=== PATIENT | male | born 1980 | race Caucasian/White ===

== ENCOUNTER 2018-12-09 00:08 | Emergency (ER) | payer OTHER ==
[~2018-12-09] VITALS: Ht 172.7 cm; Wt 93.0 kg
[~2018-12-09 00:08] MED LIST: ACETAMINOPHEN-1 EAC1 PO; CLEOCIN HCL300 MG PO; HYDROCODON-ACE1 EAC7 PO; HYDROCODONE-AP1 EAC6 PO; IBUPROFEN 800800 M1 PO; LIDOCAINE VISC100 M1 SWISH&SPIT; PENICILLIN V P250 MG PO; PENICILLIN V P500 MG PO; TEGRETOL XR100 MG PO; TEGRETOL100 MG/5 M PO
[2018-12-09] MEDS ORDERED: LEXAPRO 10 MG T10 M1 PO (00:50)
[2018-12-09] MEDS ORDERED: ULTRAM 50MG TAB50 MG PO (00:51)
[2018-12-09] MEDS ORDERED: NEURONTIN 400400 M1 PO (00:51)
[2018-12-09] MEDS ORDERED: LIDODERM1 EACH TRANSDERM (00:51)
[2018-12-09] MEDS ORDERED: XANAX 0.25 MG0.25 MG PO (00:51)
[2018-12-09] MEDS ORDERED: DEPAKOTE125 MG PO (00:51)
[2018-12-09 02:13] LABS: URINE BILIRUBIN NEGATIVE (Negative); URINE BLOOD NEGATIVE (Negative); URINE CLARITY CLEAR; URINE COLOR YELLOW; URINE GLUCOSE-RANDOM NEGATIVE (Negative); URINE KETONES TRACE (Negative); URINE LEUKOCYTES-REFLEX NEGATIVE (Negative); URINE NITRITE-REFLEX NEGATIVE (Negative); URINE PROTEIN NEGATIVE (Negative); URINE SPECIFIC GRAVITY >= 1.030 (1.005-1.030); URINE UROBILINOGEN 0.2 E.U./dl (0.2-1.0)
[2018-12-09 02:22] LABS: AMP/METHAMP POSITIVE (Negative); BARBITURATES Negative (Negative); BENZODIAZEPINES POSITIVE (Negative); COCAINE Negative (Negative); METHADONE Negative (Negative); OPIATES Negative (Negative); PCP Negative (Negative); THC Negative (Negative)
[2018-12-09 03:08] LABS: ABSOLUTE EOSINOPHILS 0.2 thou/uL (0.0-0.7); ABSOLUTE LYMPHOCYTES 1.6 thou/uL (0.8-5.3); ABSOLUTE MONOCYTES 0.5 thou/uL (0.0-1.2); ABSOLUTE NEUTROPHILS 4.1 thou/uL (1.6-8.1); BASOPHILS 0.6 %; EOSINOPHILS 2.6 %; HEMATOCRIT 39.5 % (42.0-52.0); HEMOGLOBIN 13.4 gm/dL (14.0-18.0); LYMPHOCYTES 25.4 %; MCH 29.8 pg (26.0-34.0); MCV 87.8 fL (80.0-100.0); MONOCYTES 7.5 %; MPV 9.3 fl. (7.2-11.1); NUCLEATED RBCS 0 /100WBC; PLATELET COUNT* 199 thou/uL (150-400); POLYS 63.9 %; RBC 4.49 mil/uL (4.50-6.00); WBC 6.5 thou/uL (4.0-11.0)
[2018-12-09 03:13] LABS: ANION GAP 5 mmol/L (7-16); BUN 23 mg/dL (7-18); CALCIUM 8.7 mg/dL (8.5-10.1); CHLORIDE 103 mmol/L (98-107); CO2 28 mmol/L (21-32); CREATININE 1.3 mg/dL (0.6-1.3); GLUCOSE 85 mg/dL (70-99); SODIUM 136 mmol/L (136-145)
[2018-12-09 03:19] LABS: ALBUMIN 3.5 g/dL (3.4-5.0); ALKALINE PHOSPHATASE 70 U/L (46-116); SGOT 19 U/L (15-37); SGPT 24 U/L (30-65); TOTAL BILIRUBIN 0.4 mg/dL (<0.1-1.0); TOTAL PROTEIN 7.1 g/dL (6.4-8.2); TROPONIN-I LEVEL <0.06 ng/mL (<0.06)
[2018-12-09 03:30] LABS: ALCOHOL < 10 mg/dL (<10); SALICYLATE < 2.8 mg/dL (2.8-20.0)
[2018-12-09 03:44] LABS: ACETAMINOPHEN < 2 ug/mL (10-30)
--- NOTE | 2018-12-09 15:32 | EKG ---
[place] [address] ELECTROCARDIOGRAM REPORT Name: PRASANTH SUH Room: [facility]#: [id number] Admission: 12/09/18 Attend Phys: Discharge: Date of : 78 Report #: [id number] THIS REPORT FOR: //name// [facility] Test Date: 2018-12-09 Test Time: 01:38:55 Pat Name: PRASANTH SUH Department: Room: Gender: Shipping Specialist: Miguel MESSINA : 1980 Requested By: Tyrel Watts Order Number: [id number] MD: Cy Gonzalez Measurements Intervals [place] Rate: 102 P: 68 [place]: 171 QRS: 63 QRSD: 80 T: 39 QT: 328 QTc: 428 Interpretive Statements Sinus tachycardia ST elev, probable normal early repol pattern No previous ECG available for comparison Electronically Signed On 12-09-2018 15:32:25 INSURANCE ADJUSTER by Cy Gonzalez [email or web address] <ELECTRONICALLY SIGNED> By: Cy Gonzalez MD, [facility] 12/09/18 1532 [id number] Cy Gonzalez MD, FACC /EPI
[2018-12-09 16:57] VITALS: BP 99/59
== END 2018-12-09 17:01 | disposition home or self-care (01) ==
LOC: M.ERS 00:08
PROVIDERS: Emergency Medicine
DX: R45.851 Suicidal ideations (principal); F60.3 Borderline personality disorder; F32.9 Major depressive disorder, single episode, unspecified; F41.9 Anxiety disorder, unspecified

== ENCOUNTER 2019-08-05 21:46 | Emergency (ER) | payer OTHER, MEDICAID ==
[~2019-08-05] VITALS: Ht 175.3 cm; Wt 96.2 kg
[~2019-08-05 21:46] MED LIST changes: +DEPAKOTE125 MG PO; +LEXAPRO 10 MG T10 M1 PO; +LIDODERM1 EACH TRANSDERM; +NEURONTIN 400400 M1 PO; +ULTRAM 50MG TAB50 MG PO; +XANAX 0.25 MG0.25 MG PO
[2019-08-05 22:27] LABS: URINE BILIRUBIN NEGATIVE (Negative); URINE BLOOD NEGATIVE (Negative); URINE CLARITY CLEAR; URINE COLOR YELLOW; URINE GLUCOSE-RANDOM NEGATIVE (Negative); URINE KETONES NEGATIVE (Negative); URINE LEUKOCYTES NEGATIVE (Negative); URINE NITRITE NEGATIVE (Negative); URINE PROTEIN NEGATIVE (Negative); URINE UROBILINOGEN 0.2 E.U./dl (0.2-1.0)
[2019-08-05 22:30] LABS: HEMATOCRIT 41.4 % (42.0-52.0); HEMOGLOBIN 14.3 gm/dL (14.0-18.0); MCH 31.4 pg (26.0-34.0); MCHC 34.6 g/dL (28.0-37.0); MCV 90.8 fL (80.0-100.0); MPV 9.5 fl. (7.2-11.1); NUCLEATED RBCS 0 /100WBC; PLATELET COUNT* 185 thou/uL (150-400); RBC 4.56 mil/uL (4.50-6.00); RDW-CV 13.2 % (10.5-14.5); WBC 8.3 thou/uL (4.0-11.0)
[2019-08-05 22:36] LABS: AMP/METHAMP Negative (Negative); BARBITURATES Negative (Negative); BENZODIAZEPINES POSITIVE (Negative); COCAINE Negative (Negative); METHADONE Negative (Negative); OPIATES Negative (Negative); PCP Negative (Negative); THC Negative (Negative)
[2019-08-05 22:39] LABS: CALCIUM 9.3 mg/dL (8.5-10.1); POTASSIUM 4.5 mmol/L (3.5-5.1)
[2019-08-05 22:44] LABS: ACETAMINOPHEN < 2 ug/mL (10-30); ALBUMIN 3.6 g/dL (3.4-5.0); ALCOHOL < 10 mg/dL (<10); SALICYLATE < 2.8 mg/dL (2.8-20.0); TOTAL BILIRUBIN 0.1 mg/dL (<0.1-1.0); TOTAL PROTEIN 7.5 g/dL (6.4-8.2)
[2019-08-05 22:54] LABS: VALPROIC ACID (DEPAKENE) 16.5 mcg/mL (50-100)
[2019-08-05 23:18] LABS: ABSOLUTE EOSINOPHILS 1.3 thou/uL (0.0-0.7); ABSOLUTE LYMPHOCYTES 2.7 thou/uL (0.8-5.3); ABSOLUTE MONOCYTES 0.4 thou/uL (0.0-1.2); ABSOLUTE NEUTROPHILS 3.8 thou/uL (1.6-8.1); PLATELET ESTIMATE ADEQUATE
[2019-08-06 03:49] VITALS: BP 111/63
== END 2019-08-06 03:50 | disposition home or self-care (01) ==
LOC: M.ERS 21:46
PROVIDERS: Emergency Medicine
DX: F41.9 Anxiety disorder, unspecified (principal); F32.9 Major depressive disorder, single episode, unspecified

== ENCOUNTER 2019-12-24 20:22 | Emergency (ER) | payer OTHER, MEDICAID ==
[~2019-12-24] VITALS: Ht 175.3 cm; Wt 103.0 kg
[2019-12-24 21:04] LABS: CALCIUM 8.2 mg/dL (8.5-10.1); CREATININE 1.3 mg/dL (0.6-1.3); HEMATOCRIT 43.8 % (42.0-52.0); HEMOGLOBIN 15.1 gm/dL (14.0-18.0); MCH 30.9 pg (26.0-34.0); MCHC 34.5 g/dL (28.0-37.0); MCV 89.7 fL (80.0-100.0); MPV 9.5 fl. (7.2-11.1); NUCLEATED RBCS 0 /100WBC; PLATELET COUNT* 226 thou/uL (150-400); POTASSIUM 3.6 mmol/L (3.5-5.1); RBC 4.89 mil/uL (4.50-6.00); RDW-CV 13.1 % (10.5-14.5); WBC 13.3 thou/uL (4.0-11.0)
[2019-12-24 21:09] LABS: ALBUMIN 3.9 g/dL (3.4-5.0); TOTAL BILIRUBIN 0.7 mg/dL (<0.1-1.0); TOTAL PROTEIN 8.2 g/dL (6.4-8.2)
[2019-12-24 22:33] LABS: ABSOLUTE EOSINOPHILS 0.4 thou/uL (0.0-0.7); ABSOLUTE LYMPHOCYTES 5.6 thou/uL (0.8-5.3); ABSOLUTE MONOCYTES 0.7 thou/uL (0.0-1.2); ABSOLUTE NEUTROPHILS 6.7 thou/uL (1.6-8.1); ATYPICAL LYMPHS 2 %; PLATELET ESTIMATE ADEQUATE; TOXIC GRANULATION 1+
[2019-12-24 22:34] LABS: HYPOCHROMASIA 1+
[2019-12-25 03:49] VITALS: BP 130/41
== END 2019-12-25 09:56 | disposition home or self-care (01) ==
LOC: M.ERS 20:22
PROVIDERS: Emergency Medicine
DX: S60.512A Abrasion of left hand, initial encounter (principal); S80.212A Abrasion, left knee, initial encounter; S80.211A Abrasion, right knee, initial encounter; F98.9 Unspecified behavioral and emotional disorders with onset usually occurring in childhood and adolescence; F32.9 Major depressive disorder, single episode, unspecified; F41.9 Anxiety disorder, unspecified; R45.850 Homicidal ideations; R41.82 Altered mental status, unspecified; X58.XXXA Exposure to other specified factors, initial encounter; Y93.89 Activity, other specified; Y92.89 Other specified places as the place of occurrence of the external cause; Y99.8 Other external cause status

== ENCOUNTER 2020-02-14 20:29 | Emergency (ER) | payer OTHER, MEDICAID ==
[~2020-02-14] VITALS: Ht 172.7 cm; Wt 90.7 kg
[2020-02-14 21:21] LABS: ABSOLUTE BASOPHILS 0.1 thou/uL (0.0-0.2); ABSOLUTE EOSINOPHILS 0.2 thou/uL (0.0-0.7); ABSOLUTE LYMPHOCYTES 2.5 thou/uL (0.8-5.3); ABSOLUTE MONOCYTES 0.7 thou/uL (0.0-1.2); ABSOLUTE NEUTROPHILS 3.2 thou/uL (1.6-8.1); HEMATOCRIT 42.4 % (42.0-52.0); HEMOGLOBIN 14.8 gm/dL (14.0-18.0); LYMPHOCYTES 37.8 %; MCH 30.9 pg (26.0-34.0); MCHC 34.8 g/dL (28.0-37.0); MCV 88.9 fL (80.0-100.0); MONOCYTES 10.5 %; MPV 8.7 fl. (7.2-11.1); NUCLEATED RBCS 0 /100WBC; PLATELET COUNT* 215 thou/uL (150-400); POLYS 47.7 %; RBC 4.77 mil/uL (4.50-6.00); RDW-CV 13.1 % (10.5-14.5); WBC 6.7 thou/uL (4.0-11.0)
[2020-02-14 21:29] LABS: CALCIUM 8.1 mg/dL (8.5-10.1); CREATININE 1.1 mg/dL (0.6-1.3); POTASSIUM 3.7 mmol/L (3.5-5.1)
[2020-02-14 21:29] LABS: URINE BILIRUBIN NEGATIVE (Negative); URINE BLOOD NEGATIVE (Negative); URINE CLARITY CLEAR; URINE COLOR YELLOW; URINE GLUCOSE-RANDOM NEGATIVE (Negative); URINE KETONES NEGATIVE (Negative); URINE LEUKOCYTES-REFLEX NEGATIVE (Negative); URINE NITRITE-REFLEX NEGATIVE (Negative); URINE PROTEIN NEGATIVE (Negative); URINE SPECIFIC GRAVITY 1.015 (1.005-1.030); URINE UROBILINOGEN 0.2 E.U./dl (0.2-1.0)
[2020-02-14 21:34] LABS: ALBUMIN 3.8 g/dL (3.4-5.0); TOTAL PROTEIN 8.1 g/dL (6.4-8.2)
[2020-02-14 21:37] LABS: AMP/METHAMP Negative (Negative); BARBITURATES Negative (Negative); BENZODIAZEPINES Negative (Negative); COCAINE Negative (Negative); METHADONE Negative (Negative); OPIATES Negative (Negative); PCP Negative (Negative); THC Negative (Negative)
[2020-02-14 21:42] LABS: ALCOHOL 157 mg/dL (<10); SALICYLATE < 2.8 mg/dL (2.8-20.0)
[2020-02-14 21:43] LABS: ACETAMINOPHEN < 2 ug/mL (10-30)
[2020-02-15 04:58] VITALS: BP 142/74
== END 2020-02-15 04:58 | disposition home or self-care (01) ==
LOC: M.ERS 20:29
PROVIDERS: Family Medicine
DX: S61.411A Laceration without foreign body of right hand, initial encounter (principal); S00.83XA Contusion of other part of head, initial encounter; F91.1 Conduct disorder, childhood-onset type; F10.129 Alcohol abuse with intoxication, unspecified; F32.9 Major depressive disorder, single episode, unspecified; F41.9 Anxiety disorder, unspecified; X58.XXXA Exposure to other specified factors, initial encounter; Y93.89 Activity, other specified; Y92.89 Other specified places as the place of occurrence of the external cause; Y99.8 Other external cause status; Y90.6 Blood alcohol level of 120-199 mg/100 ml

== ENCOUNTER 2021-01-14 09:25 | Emergency (ER) | payer OTHER, MEDICAID ==
[~2021-01-14] VITALS: Ht 172.7 cm; Wt 97.5 kg
[2021-01-14 09:29] VITALS: BP 126/66
[2021-01-14] MEDS ORDERED: AMOXICILLIN875 MG PO (09:43)
[2021-01-14] MEDS ORDERED: MOBIC7.5 MG PO (09:43)
== END 2021-01-14 09:45 | disposition home or self-care (01) ==
LOC: M.ERS 09:25
DX: S02.5XXA Fracture of tooth (traumatic), initial encounter for closed fracture (principal); F32.9 Major depressive disorder, single episode, unspecified; F41.9 Anxiety disorder, unspecified; Z87.828 Personal history of other (healed) physical injury and trauma; Z79.899 Other long term (current) drug therapy; W22.8XXA Striking against or struck by other objects, initial encounter; Y93.89 Activity, other specified; Y92.89 Other specified places as the place of occurrence of the external cause; Y99.8 Other external cause status